=== PATIENT | male | born 2000 | race Caucasian/White ===

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

== ENCOUNTER 2022-03-16 04:59 | Emergency (ER) | payer MEDICAID ==
[~2022-03-16] VITALS: Ht 167 cm; Wt 74.1 kg
[~2022-03-16 04:59] MED LIST: CEPH-507 PO; CHLO473M4 MM
[2022-03-16] MEDS ORDERED: ONDANSETRON 4 MG (ZOFRAN) ORAL DISSOLVE TAB SL STA (05:16)
[2022-03-16] MEDS ORDERED: FAMOTIDINE 20 MG (PEPCID) TABLET PO STA (05:16)
--- NOTE | 2022-03-16 05:23 | ED GI ---
General Chief Complaint: Abdominal/GI Problems Stated Complaint: VOMITING,STOMACH PAIN Source of Information: Patient Exam Limitations: No Limitations History of Present Illness Date Seen by Provider: Mar 16, 2022 Time Seen by Provider: 05:00 Initial Comments 21-year-old male with no pertinent past medical history coming in after vomiting within the past hour. He believes it could be the Saenz's that he had last night. Denies any diarrhea, fever, severe abdominal pain when he is not vomiting, chest pain, shortness of breath, rash, dysuria, or any other concerns. His significant other had similar meal last night and has not sick as of yet. Otherwise denying any other acute complaints. Allergies and Home Medications Allergies Coded Allergies: No Known Drug Allergies (Unverified , 04/20/19) Patient Home Medication List Home Medication List Reviewed: Yes Cephalexin (Keflex) 500 Mg Capsule, 500 MG PO QID PRN for PAIN-MILD (1-4) OR TEMPATURE Prescribed by: JOSY GARAY on 09/10/191827 Chlorhexidine Gluconate (Peridex) 473 Ml Mouthwash, 473 ML MM Q4H PRN for PAIN- MILD (1-4) OR TEMPATURE Prescribed by: JOSY GARAY on 09/10/191827 Review of Systems Review of Systems Constitutional: No fever EENTM: No Symptoms Reported Respiratory: No Symptoms Reported Cardiovascular: No Symptoms Reported Gastrointestinal: Nausea, Vomiting Genitourinary: No Symptoms Reported Musculoskeletal: no symptoms reported Skin: no symptoms reported Psychiatric/Neurological: No Symptoms Reported Endocrine: No Symptoms Reported Hematologic/Lymphatic: No Symptoms Reported All Other Systems Reviewed Negative Unless Noted: Yes Past Doicmvi-Tkbjmn-Yrfpwv Hx Patient Social History Tobacco Use?: No Immunizations Up To Date Tetanus Booster (TDap): Unknown Seasonal Allergies Seasonal Allergies: No Past Medical History Surgeries: No Respiratory: No Cardiac: No Neurological: No Genitourinary: No Gastrointestinal: No Musculoskeletal: No Endocrine: No HEENT: No Cancer: No Psychosocial: No Integumentary: No Blood Disorders: No Physical Exam Vital Signs Capillary Refill : Height/Weight/BMI Height: '" Weight: lbs. oz. kg; 24.00 BMI Method: General Appearance: WD/WN, no apparent distress HEENT: PERRL/EOMI, normal ENT inspection, pharynx normal Neck: non-tender, full range of motion, supple, normal inspection Respiratory: chest non-tender, lungs clear, normal breath sounds, no respiratory distress, no accessory muscle use Cardiovascular: regular rate, rhythm, no edema, no murmur Gastrointestinal: non tender, soft; No distended, No guarding, No rebound; other (Hyperactive bowel sounds) Extremities: normal range of motion, non-tender, normal inspection, no pedal edema, no calf tenderness, normal capillary refill Back: normal inspection, no CVA tenderness Neurologic/Psychiatric: no motor/sensory deficits, alert, normal mood/affect Skin: normal color, warm/dry Lymphatic: no adenopathy Progress/Results/Core Measures Results/Orders My Orders Orders - ALFA ZARCO MD Zofran Sl (03/16/22 05:16) Pepcid Po (03/16/22 05:16) Progress Progress Note : Progress Note 21-year-old male with above history coming in due to nausea with vomiting. ABCs were intact and vitals were stable on presentation. Physical exam reassuring including a soft and nontender abdomen. He was given Zofran as well as Pepcid for his symptoms. Possible its foodborne related versus viral. He is tolerating some p.o. here. I discussed he should take it easy, drink fluids today, try the nausea medicines, and if he is unable to keep anything down, or develops severe abdominal pain he should be reassessed by physician Departure Impression Primary Impression: Vomiting in adult Disposition: 01 HOME, SELF-CARE Condition: Stable Departure-Patient Inst. Decision time for Depature: 05:30 Referrals: NO,LOCAL PHYSICIAN (PCP/Family) Primary Care Physician Patient Instructions: Nausea and Vomiting, Adult ED Add. Discharge Instructions: This could be foodborne related versus just a viral "stomach flu". Typically they last 24 to 48 hours. Nausea medicines were sent to your pharmacy. Take frequent but very small sips of clear fluids today, do not focus on eating any food until you feel a lot better. You probably will develop some diarrhea as well which would be normal. If you develop severe abdominal pain that will not go away after vomiting even with taking Tylenol, then I want you to be reevaluated by a doctor. Scripts Ondansetron (Ondansetron Odt) 4 Mg Tab.rapdis 4 MG SL Q6H PRN for NAUSEA/VOMITING for 7 Days, #28 TAB Prov: ALFA ZARCO MD 03/16/22 Work/School Note: Work Release Form Date Seen in the Emergency Department: Mar 16, 2022 Return to Work: Mar 18, 2022 Restrictions: Return-No Fever (24hrs), Return-No Vomiting(24hrs) ALFA ZARCO MD Mar 16, 2022 05:22
[2022-03-16] MEDS ORDERED: ONDA4TAB11 SL (05:24)
[2022-03-16 05:37] VITALS: BP 130/68
== END 2022-03-16 05:45 | disposition home or self-care (01) ==
LOC: EDUNIT# 04:59 → ER FS 05:01
DX: R11.2 Nausea with vomiting, unspecified (principal); Z28.311 Partially vaccinated for COVID-19
CPT/HCPCS: 99283

== ENCOUNTER 2022-04-07 13:16 | Emergency (ER) | payer MEDICAID ==
[~2022-04-07] VITALS: Ht 172 cm; Wt 71.0 kg
[~2022-04-07 13:16] MED LIST changes: +ONDA4TAB11 SL
--- NOTE | 2022-04-07 13:26 | ED Cough/URI ---
General Chief Complaint: Cough/Cold/Flu Symptoms Stated Complaint: VOMITING/COUGH/RUNNY NOSE History of Present Illness Date Seen by Provider: Apr 07, 2022 Time Seen by Provider: 13:26 Initial Comments 21-year-old male presents with body aches, cough, runny nose had some diarrhea and episode of nausea and some vomiting. Patient reports that symptoms started 4 days ago. 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 Patient is here because he feels bad, does need a work note. Patient is not having shortness of breath. Allergies and Home Medications Allergies Coded Allergies: No Known Drug Allergies (Unverified , 04/20/19) Patient Home Medication List Home Medication List Reviewed: Yes Cephalexin (Keflex) 500 Mg Capsule, 500 MG PO QID PRN for PAIN-MILD (1-4) OR TEMPATURE Prescribed by: JOSY GARAY on 09/10/191827 Chlorhexidine Gluconate (Peridex) 473 Ml Mouthwash, 473 ML MM Q4H PRN for PAIN-MILD (1-4) OR TEMPATURE Prescribed by: JOSY GARAY on 09/10/191827 Ondansetron (Ondansetron Odt) 4 Mg Tab.rapdis, 4 MG SL Q6H PRN for NAUSEA/VOMITING Prescribed by: ALFA ZARCO on 03/16/22 0524 Review of Systems Review of Systems Constitutional: chills, fever, malaise EENTM: see HPI Respiratory: cough; No short of breath Cardiovascular: no symptoms reported Gastrointestinal: diarrhea, nausea, vomiting Genitourinary: no symptoms reported Musculoskeletal: see HPI Skin: no symptoms reported Past Prrrsab-Wamiko-Sexlgq Hx Immunizations Up To Date Tetanus Booster (TDap): Unknown First/Initial COVID19 Vaccinat: yes Seasonal Allergies Seasonal Allergies: No Past Medical History Surgeries: No Respiratory: No Cardiac: No Neurological: No Genitourinary: No Gastrointestinal: No Musculoskeletal: No Endocrine: No HEENT: No Cancer: No Psychosocial: No Integumentary: No Blood Disorders: No Physical Exam Vital Signs - First Documented 04/07/22 13:27 Temp 36.1 Pulse 107 Resp 16 B/P (MAP) 145/85 (105) Pulse Ox 98 O2 Delivery Room Air Capillary Refill : Height: '" Weight: lbs. oz. kg; 26.00 BMI Method: General Appearance: no apparent distress, other (Obviously ill but nontoxic) Eyes: Bilateral Eye Normal Inspection, Bilateral Eye PERRL, Bilateral Eye EOMI HEENT: other (Mucous membranes more) Neck: full range of motion Respiratory: lungs clear, normal breath sounds Cardiovascular: normal peripheral pulses, regular rate, rhythm Gastrointestinal: non tender, soft Extremities: non-tender, normal inspection Neurologic/Psychiatric: alert, normal mood/affect, oriented x 3 Skin: normal color, warm/dry Progress/Results/Core Measures Suspected Sepsis SIRS Temperature: Pulse: Respiratory Rate: Blood Pressure / Mean: Results/Orders Vital Signs/I&O 04/07/22 13:27 Temp 36.1 Pulse 107 Resp 16 B/P (MAP) 145/85 (105) Pulse Ox 98 O2 Delivery Room Air Capillary Refill : Progress Note : Progress Note Patient with a viral syndrome. I suspect he likely has influenza. However he is outside treatment for Tamiflu or similar medication so at this point no reason for testing. Discussed with him supportive care. Patient will be provided Zofran for the nausea. He stable and discharged home Departure Impression Primary Impression: Acute viral syndrome Disposition: HOME, SELF-CARE Condition: Stable Departure-Patient Inst. Referrals: NO,LOCAL PHYSICIAN (PCP/Family) Primary Care Physician Patient Instructions: Flu, Adult (DC), Viral Syndrome (DC) Add. Discharge Instructions: Tylenol or ibuprofen as needed for body aches, encourage you to drink plenty of fluids. You may try elderberry to help with your symptoms All discharge instructions reviewed with patient and/or family. Voiced understanding. Scripts Ondansetron (Ondansetron Odt) 4 Mg Tab.rapdis 4 MG PO Q6H PRN for NAUSEA/VOMITING, #20 TAB 0 Refills Prov: PACO LANE DO 04/07/22 Work/School Note: Work Release Form Date Seen in the Emergency Department: Apr 07, 2022 Return to Work: Apr 09, 2022 Restrictions: Return-No Fever (24hrs), Return-No Vomiting(24hrs) PACO LANE DO Apr 07, 2022 13:26
[2022-04-07 13:27] VITALS: BP 145/85
[2022-04-07] MEDS ORDERED: ONDA4TAB11 PO (13:43)
== END 2022-04-07 13:50 | disposition home or self-care (01) ==
LOC: EDUNIT# 13:16 → ER FS 13:18
DX: B34.9 Viral infection, unspecified (principal); R11.2 Nausea with vomiting, unspecified
CPT/HCPCS: 99281